=== PATIENT | female | born 1955 | race African-American/Black ===

== ENCOUNTER → 2021-02-18 | Outpatient (CLI) | payer MEDICARE, OTHER | LOC: RAD 02-13 14:14 | PROVIDERS: ATTEND Family Medicine | DX: M25.561 Pain in right knee (principal) ==

== ENCOUNTER → 2022-11-13 | Outpatient (CLI) | payer MEDICARE | LOC: RAD 12:51 | PROVIDERS: ATTEND Family Medicine | DX: M79.641 Pain in right hand (principal) ==